=== PATIENT | female | born 1970 | race Caucasian/White ===

== ENCOUNTER 2025-01-28 09:16 | Emergency (ER) | payer SELFPAY ==
[~2025-01-28] VITALS: Ht 152.4 cm; Wt 88.9 kg
[2025-01-28 09:22] VITALS: TEMP 98
[2025-01-28 10:03] LABS: BASOPHILS % 0.6 % (0.0-1.0); EOSINOPHILS % 3.0 % (0.0-6.0); LYMPHOCYTES % 25.3 % (18.0-39.1); MONOCYTES % 5.1 % (4.4-11.3); NEUTROPHILS % 65.7 % (38.7-80.0); RED CELL DISTRIBUTION WIDTH 13.5 % (11.7-14.4)
[2025-01-28 10:30] VITALS: PULSE 75; RESP 18
[2025-01-28 10:35] LABS: EST GLOMERULAR FILTRATION RATE 55.0 ML/MIN (>=60)
[2025-01-28 11:30] VITALS: BP 112/91; PULSE 74; RESP 18; TEMP 98.2; O2SAT 98
[2025-01-28 11:33] LABS: LEUKOCYTE ESTERASE ,URINE NEGATIVE (NEGATIVE); PROTEIN,URINE DIPSTICK NEGATIVE (NEGATIVE); URINE UROBILINOGEN 0.2 mg/dL (0.2 - 1)
[2025-01-28 12:11] LABS: EPITHELIAL CELLS,URINE RARE /LPF; WBC,URINE (MAN) 0-5 /HPF (0-5)
== END 2025-01-28 11:52 | disposition home or self-care (01) ==
LOC: ER 09:27
DX: R53.1 Weakness (principal); R20.0 Anesthesia of skin; Z79.01 Long term (current) use of anticoagulants; I10 Essential (primary) hypertension; R94.31 Abnormal electrocardiogram [ECG] [EKG]; Z86.73 Personal history of transient ischemic attack (TIA), and cerebral infarction without residual deficits; Z85.89 Personal history of malignant neoplasm of other organs and systems
CPT/HCPCS: 36415; 70450; 71045; 80053; 81001; 83880; 84484; 85025; 93005; 99284